=== PATIENT | male | born 1975 | race African-American/Black ===

== ENCOUNTER 2020-05-11 15:39 | Emergency (ER) | payer SELFPAY ==
[~2020-05-11] VITALS: Ht 170.2 cm; Wt 122.0 kg
[2020-05-11 15:43] VITALS: BP 158/80
== END 2020-05-11 19:01 | disposition home or self-care (01) ==
LOC: ER 15:39
DX: L70.9 Acne, unspecified (principal)
CPT/HCPCS: 99282